=== PATIENT | female | born 1965 | race Caucasian/White ===

== ENCOUNTER → 2018-08-24 | Outpatient (CLI) | payer BC ==
--- NOTE | 2018-08-24 17:34 | Diagnostic Imaging Report ---
PROCEDURE: MRI right joint lower extremity without contrast. TECHNIQUE: Multiplanar, multisequence non contrast-enhanced MRI of the right lower extremity was accomplished. INDICATION: Knee pain. COMPARISON: There are no prior studies available for comparison. FINDINGS: On the proton dense fat-saturated sagittal series, there is abnormal signal throughout the midportion and the posterior horn of the medial meniscus. The midportion of the medial meniscus appears to have been torn and has partially degenerated. There is also a tear involving the posterior horn. The anterior horn of the lateral meniscus also has an irregular appearance and I suspect it is torn as well. The anterior and posterior cruciate ligaments, quadriceps and infrapatellar tendons are intact. There is some edema/inflammation about the medial collateral ligament but the MCL itself seems to be intact. The fibular collateral ligament, the biceps femoris tendon and the iliotibial band show no sign of an acute abnormality. The medial and lateral retinaculum are intact. There is no abnormal signal arising from the osseous structures to indicate a fracture. However on the STIR coronal series, there is slightly increased signal in the opposing surfaces of the medial femoral condyle and medial proximal tibia. Most likely this is due to mild bone edema from repetitive trauma. There is also fairly advanced degenerative disease involving the articular surfaces of the medial femoral condyle and medial proximal tibia. There is only mild degenerative disease of the lateral compartment and the patellofemoral space. There is a moderate joint effusion present. There is no sign of a Fontenot's cyst. IMPRESSION: 1. The midportion of the medial meniscus has been torn and has partially degenerated. There is also a tear of the posterior horn of the medial meniscus. 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 There is also a small tear of the anterior horn of the lateral meniscus. 2. The major ligaments and tendons are intact. There is mild edema/inflammation about the medial collateral however. 3. There is a moderate to large joint effusion. Dictated by: Dictated on workstation # [id number]
== END ==
LOC: RAD 14:53
PROVIDERS: ATTEND Orthopaedic Surgery
DX: S83.241A Other tear of medial meniscus, current injury, right knee, initial encounter (principal); S83.281A Other tear of lateral meniscus, current injury, right knee, initial encounter; M17.11 Unilateral primary osteoarthritis, right knee
CPT/HCPCS: 73721

== ENCOUNTER → 2019-09-26 | Outpatient (CLI) | payer BC ==
--- NOTE | 2019-09-26 15:41 | Diagnostic Imaging Report ---
INDICATION: Right heel pain. TIME OF EXAM: 03:24 p.m. FINDINGS: Metatarsals are intact. Phalanges are intact. Mid foot and hind foot are unremarkable. Calcaneus shows no evidence of fracture or stress reaction. No significant calcaneal spur is seen. IMPRESSION: No acute bony abnormality is detected. Dictated by: Dictated on workstation # [id number]
== END ==
LOC: RAD FS 15:12
PROVIDERS: ATTEND Nurse Practitioner Family
DX: M79.671 Pain in right foot (principal)
CPT/HCPCS: 73630

== ENCOUNTER → 2022-08-25 | Outpatient (CLI) | payer BC ==
--- NOTE | 2022-08-25 16:02 | Diagnostic Imaging Report ---
EXAMINATION: Right wrist radiographs, 4 views. COMPARISON: None. HISTORY: 57-year-old female, right wrist pain. FINDINGS: There is a displaced intra-articular fracture involving the base of the fifth metacarpal. There is likely associated offset of the articulating surface. There is no identified radiopaque foreign body. No additional acute fracture is identified. IMPRESSION: 1. Displaced intra-articular fracture of the base of the fifth metacarpal. There is likely associated offset of the articulating surface. 2. The report was faxed to the office of RORY Crawley, by [email or web address] PM. Dictated by: Dictated on workstation # [id number]
== END ==
LOC: RAD FS 12:27
PROVIDERS: ATTEND Nurse Practitioner
DX: S62.316A Displaced fracture of base of fifth metacarpal bone, right hand, initial encounter for closed fracture (principal); X58.XXXA Exposure to other specified factors, initial encounter
CPT/HCPCS: 73110

== ENCOUNTER → 2022-08-31 | Outpatient (CLI) | payer BC ==
--- NOTE | 2022-08-31 13:10 | Diagnostic Imaging Report ---
Indication: Displaced fracture of the triquetrum COMPARISON: 08/25/2022 TECHNIQUE: 4 radiographs of the right hand dated 08/31/2022 FINDINGS: Fracturing involving the base of the 5th metacarpal is again identified, slightly laterally displaced for such an intra-articular extension. Overall alignment appears stable from prior exam. This is associated with overlying soft tissue swelling. No additional fracture. No dislocation. No destructive osseous process. Scapholunate intervals within normal limits. No suspicious radiopaque foreign body. Minimal scattered degenerative changes are present. IMPRESSION: Recent appearing fracturing involving the base of the 5th metacarpal with intra-articular extension is again identified appearing similar to the prior examination without new acute osseous abnormality. Dictated by: Dictated on workstation # [id number]
== END ==
LOC: RAD FS 09:27
PROVIDERS: ATTEND Nurse Practitioner
DX: S62.111D Displaced fracture of triquetrum [cuneiform] bone, right wrist, subsequent encounter for fracture with routine healing (principal); S62.346D Nondisplaced fracture of base of fifth metacarpal bone, right hand, subsequent encounter for fracture with routine healing; X58.XXXD Exposure to other specified factors, subsequent encounter
CPT/HCPCS: 73130

== ENCOUNTER → 2022-09-14 | Outpatient (CLI) | payer BC ==
--- NOTE | 2022-09-14 15:42 | Diagnostic Imaging Report ---
INDICATION: Right hand fracture followup. TECHNIQUE/COMPARISON: AP, oblique, and lateral views of the right hand were obtained and compared with 08/31/2022. FINDINGS: The fracture at the base of the 5th metacarpal is again noted, unchanged in alignment compared to the prior study. The remaining structures are intact. The joint spaces are in good alignment. IMPRESSION: Stable appearance of the 5th metacarpal base fracture with no new abnormality. Dictated by: Dictated on workstation # [id number]
== END ==
LOC: RAD FS 09:26
PROVIDERS: ATTEND Nurse Practitioner
DX: S62.111A Displaced fracture of triquetrum [cuneiform] bone, right wrist, initial encounter for closed fracture (principal); S62.346D Nondisplaced fracture of base of fifth metacarpal bone, right hand, subsequent encounter for fracture with routine healing; X58.XXXA Exposure to other specified factors, initial encounter
CPT/HCPCS: 73130

== ENCOUNTER → 2022-10-13 | Outpatient (CLI) | payer BC ==
--- NOTE | 2022-10-13 13:36 | Diagnostic Imaging Report ---
EXAMINATION: Right hand radiographs, 4 views. COMPARISON: September 14, 2022. HISTORY: 57-year-old female, displaced triquetral fracture. FINDINGS: There is a redemonstrated fracture deformity at the level of the base of the fifth metacarpal. There is no interval change in bone alignment. There is no identified radiopaque foreign body. There is no new fracture. The joint spaces are well preserved. There is interval healing response since initial exam on August 31, 2022. The alignment at the articulation of the fifth metacarpal base with the hamate may be abnormal. IMPRESSION: 1. Displaced intra-articular fracture of the fifth metacarpal again noted without interval change in bone alignment. 2. There is interval healing response since initial exam on August 31, 2022. The alignment at the articulation of the fifth metacarpal base with the hamate may be abnormal. This would be better evaluated with dedicated CT with small [id number]. Dictated by: Dictated on workstation # [id number]
== END ==
LOC: RAD FS 10:38
PROVIDERS: ATTEND Nurse Practitioner
DX: S62.111A Displaced fracture of triquetrum [cuneiform] bone, right wrist, initial encounter for closed fracture (principal); X58.XXXA Exposure to other specified factors, initial encounter
CPT/HCPCS: 73130